=== PATIENT | male | born 1975 | race Caucasian/White ===

== ENCOUNTER 2016-04-26 15:59 | Emergency (ER) | payer OTHER ==
[~2016-04-26] VITALS: Ht 193 cm; Wt 123.1 kg
[~2016-04-26 15:59] MED LIST: PERC7.5T13 PO; ZOFR4TAB3 SL
[2016-04-26 16:07] VITALS: BP 114/81; PULSE 78; RESP 16; TEMP 98.1; O2SAT 98
--- NOTE | 2016-04-26 17:26 | PD ---
HPI Chief Complaint: Musculoskeletal Complaint Time Seen by Provider: 17:26 Travel History International Travel<30 days: No Contact w/Intl Traveler<30days: No Traveled to known affect area: No History of Present Illness HPI 41-year-old male presents to the emergency department for evaluation of left foot pain for 3 days. Denies any injury or trauma to his foot. States that the pain is located over the top of his foot. Aggravated with weightbearing. Improves with rest. States that he has been told that he has arthritis and gout in the past. States that he has seen a acoustical logging engineer in the past for foot pain and been told that he needed inserts into his shoes but he never got them. He denies any fever, chills, nausea, vomiting, numbness or tingling, weakness. No other complaints. PFSH Past Medical History Hx Anticoagulant Therapy: No Cardiovascular Problems: No Chemotherapy: No Cerebrovascular Accident: No Diabetes: No Diminished Hearing: No Deep Vein Thrombosis: Yes (2011) Gout: Yes Respiratory: No Immunizations Current: Yes Tetanus Vaccination: < 5 Years Influenza Vaccination: No Past Surgical History Surgical History: No Previous Surgery Hysterectomy: No Social History Alcohol Use: Yes Tobacco Use: No Substance Use: No Allergies-Medications (Allergen,Severity, Reaction): Coded Allergies: Penicillin (Verified Allergy, Intermediate, ITCHING, REDNESS, COUGHING, ) Reported Meds & Prescriptions Reported Meds & Active Scripts Active Naproxen 500 Mg Tab 500 Mg PO BID 7 Days Review of Systems Except as stated in HPI: all other systems reviewed are Neg Physical Exam Narrative GENERAL: Well-nourished and well-developed pleasant male patient in no acute distress who is nontoxic appearing. SKIN: Warm and dry. HEAD: Normocephalic and atraumatic. EYES: No injection, drainage, or hyphema noted. PERRLA. EOMI. ENT: No nasal drainage noted. Oropharynx is clear. NECK: Supple and the trachea is midline. CARDIOVASCULAR: Regular rate and rhythm. RESPIRATORY: Breath sounds are equal bilaterally with no accessory muscle use, wheezing, rhonchi, or crackles. MUSCULOSKELETAL: The patient has very high arches to bilateral feet. He has tenderness to palpation over the dorsal aspect of the left foot. No obvious deformities, swelling, cyanosis, or ecchymosis is present throughout the upper and lower extremities. Patient has full range of motion without any signs of neurovascular compromise. NEUROLOGICAL: Awake, alert, and oriented. Normal speech and gait. Cranial nerves are grossly intact. Data Data Last Documented VS Vital Signs Date Time Temp Pulse Resp B/P Pulse Ox O2 Delivery O2 Flow Rate FiO2 04/26/16 16:07 98.1 78 16 114/81 98 Orders Foot, Complete ([id number]) (04/26/16 16:36) MDM Medical Decision Making Medical Screen Exam Complete: Yes Emergency Medical Condition: Yes Differential Diagnosis Sprain versus contusion versus high arch versus fasciitis Narrative Course 41-year-old male presents to the emergency department for evaluation of left foot pain. Patient is afebrile, vital signs are stable. No injury or trauma. X-ray of the left foot is negative for any acute abnormalities. The patient has very high arches bilaterally. I suspect that his pain is secondary to high arches with poor arch support as he is currently wearing flip-flops. Discussed supportive care and advised to follow-up with a acoustical logging engineer. Patient verbalizes understanding and agreement with treatment plan. Diagnosis Primary Impression: Left foot pain Additional Impression: High arch Referrals: Geographic Information Systems Director Patient Instructions: General Instructions Additional Instructions: Stop wearing sandals. Wear shoes with good arch support such as tennis shoes. Take medication as prescribed with food and a full glass of water. Follow-up with a Geographic Information Systems Director. Return to the ED for any acute worsening of symptoms. Med/Other Pt SpecificInfo: Prescription(s) given Scripts Naproxen 500 Mg [id number] Mg PO BID 7 Days Ref 0 Prov:Que Ansari MD 04/26/16 Disposition: 01 DISCHARGE HOME Condition: Stable Lydia Carmichael Apr 26, 2016 17:26
[2016-04-26] MEDS ORDERED: NAPR500T PO (17:46)
--- NOTE | 2016-04-26 21:33 | RADHPO ---
EXAM DATE/TIME: 04/26/2016 17:06 [facility] COMPARISON: No previous studies available for comparison. INDICATIONS : Left foot pain. No known injury. MEDICAL HISTORY : Arthritis. History of gout. SURGICAL HISTORY : None. ENCOUNTER: Initial ACUITY: 3 days PAIN SCORE: 9/10 LOCATION: Left foot. FINDINGS: No fracture is seen. The bones and joints are normally aligned. There are calcaneal spurs at the Ac hilles and plantar aponeurosis attachment sites. There is also some calcification in the proximal po sterior aspect of the plantar aponeurosis. CONCLUSION: Chronic change at the hindfoot as described above. Lev Guzman MD on April 26, 2016 at 17:24 Board Certified Radiologist. This report was verified electronically.
== END 2016-04-26 17:55 | disposition home or self-care (01) ==
LOC: PHEFT 15:59
DX: M79.672 Pain in left foot (principal); M19.90 Unspecified osteoarthritis, unspecified site; M10.9 Gout, unspecified; Z86.718 Personal history of other venous thrombosis and embolism
CPT/HCPCS: 73630; 99283